=== PATIENT | male | born 1960 | race Two or more races ===

== ENCOUNTER 2020-02-07 05:53 | Day surgery (SDC) | payer OTHER | END 2020-02-07 09:44 | disposition home or self-care (01) | LOC: AMB-ENDOS 05:53 | PROVIDERS: ATTEND Surgery | DX: K62.89 Other specified diseases of anus and rectum (principal); Z20.828 Contact with and (suspected) exposure to other viral communicable diseases ==

== ENCOUNTER 2025-02-09 14:15 | Inpatient (IN) | payer OTHER ==
[~2025-02-09] VITALS: Ht 180.3 cm; Wt 93.0 kg
[2025-02-09] MEDS ORDERED: PLAVIX75 MG PO (15:15)
--- NOTE | 2025-02-09 15:17 | NUR ---
PACIENTE ALERTA Y ORINETADO X3 QUIEN REFIERE VENIR POR DOLOR EN EL AREA RECTAL EL CUAL COMENZO EN EL KULWINDER DE BOYD. REFIERE NO TENER PROBLEMAS PARA EVACUAR Y SANGRADO.
[2025-02-09] MEDS ORDERED: 0.9 % SODIUM CHLORIDE 1,000 ML IV STA (15:50)
[2025-02-09] MEDS ORDERED: FAMOTIDINE/PF 20 MG/2 ML VIAL IV STA (15:50)
[2025-02-09] MEDS ORDERED: ONDANSETRON HCL 2 MG/ML VIAL IV STA (15:50)
[2025-02-09] MEDS ORDERED: KETOROLAC TROMETHAMINE 30 MG VIAL IM STA (15:50)
[2025-02-09] MEDS ORDERED: FAMOTIDINE/PF 20 MG/2 ML VIAL ONE (15:54)
[2025-02-09] MEDS ORDERED: ONDANSETRON HCL 2 MG/ML VIAL ONE (15:54)
[2025-02-09] MEDS ORDERED: KETOROLAC TROMETHAMINE 30 MG VIAL ONE (15:54)
[2025-02-09 16:31] LABS: BASO % 0.3 % (0.1-1.2); EOS # 0.08 (0.04-0.54); EOS % 0.8 % (0.7-7.0); LYMPH # 1.58 (1.18-3.74); LYMPH % 15.2 % (19.3-53.1); MEAN PLATELET VOLUME 9.30 fl (9.4-12.4); MONO # 1.35 (0.24-0.82); NEUT # 7.31 (1.56-6.13); NEUT % 70.4 % (34.0-71.1); RED CELL DISTRIBUTION WIDTH 13.1 % (11.6-14.4)
[2025-02-09 16:58] LABS: ERYTHROCYTE SEDIMENTATION RATE 22 mm/hr (0-20); INR 1.1; MONO % 13.0 % (4.7-12.5)
[2025-02-09 17:03] LABS: ALT/SGPT 36.0 U/L (12-78); AST/SGOT 26.0 U/L (15-37); BILIRUBIN TOTAL 0.58 mg/dL (0.3-1.2); BILIRUBIN,CONJUGATED 0.17 mg/dL (0.0-0.2); BUN CREA RATIO 20.0 (7.0-25.0); CREATININE SERUM 1.04 mg/dL (0.70-1.30); GFR 71.9; GLUCOSE FASTING 106.0 mg/dL (65-100); OSMOLALITY SERUM 285.0 MOSM/KG (275-295)
[2025-02-09] MEDS ORDERED: BARIUM SULFATE 450 ML ORAL.SUSP PO ONE (17:20)
--- NOTE | 2025-02-09 17:28 | NUR ---
SE ORIENTA PTE SOBRE TRATAMIENTO MEDICO EL MISMO REFIERE ENTENDER. SE ADMINISTRAN MEDICAMENTOS RENE ORDEN MEDICA. SE COLECTAN MUESTRAS DE LABORATORIO BAJO MEDIDAS ASEPTICAS. SE ENTREGA A PTE CONTRASTE PO Y SE EDUCA. SE CANALIZA PTE EN BRAZO DERECHO BAJO MEDIDAS ASEPTICAS.
[2025-02-09] MEDS ORDERED: CEFTRIAXONE SODIUM 1,000 MG VIAL IV ONE (21:30)
[2025-02-09] MEDS ORDERED: CEFTRIAXONE SODIUM 1,000 MG VIAL ONE (21:39)
[2025-02-09] MEDS ORDERED: PIPERACILLIN/TAZOBACTAM SODIUM 3.375 GM in 0.9 % SODIUM CHLORIDE 100 ML IV SCH (21:45)
[2025-02-09] MEDS ORDERED: MORPHINE SULFATE 4 MG/ML VIAL IV SCH (21:46)
[2025-02-09] MEDS ORDERED: FAMOTIDINE/PF 20 MG in 0.9 % SODIUM CHLORIDE 100 ML IV SCH (21:46)
[2025-02-10] MEDS ORDERED: ACETAMINOPHEN 500 MG GEL..CAP PO SCH ×2 (02:00→20:00)
[2025-02-10 06:16] LABS: BASO % 0.4 % (0.1-1.2); EOS # 0.15 (0.04-0.54); EOS % 1.8 % (0.7-7.0); LYMPH # 1.80 (1.18-3.74); LYMPH % 21.5 % (19.3-53.1); MEAN PLATELET VOLUME 9.70 fl (9.4-12.4); MONO # 1.15 (0.24-0.82); NEUT # 5.23 (1.56-6.13); NEUT % 62.2 % (34.0-71.1); RED CELL DISTRIBUTION WIDTH 13.2 % (11.6-14.4)
[2025-02-10 06:33] LABS: INR 1.04
[2025-02-10 06:51] LABS: MONO % 13.7 % (4.7-12.5)
[2025-02-10 07:04] VITALS: BP 117/78; O2SAT 96
[2025-02-10 07:22] LABS: BUN CREA RATIO 19.0 (7.0-25.0); CREATININE SERUM 0.89 mg/dL (0.70-1.30); GFR 86.06; GLUCOSE FASTING 95.0 mg/dL (65-100); OSMOLALITY SERUM 279.0 MOSM/KG (275-295)
[2025-02-10] MEDS ORDERED: HEMOSTATIC MATRIX 1 KIT KIT TOP ONE (14:39)
[2025-02-10] MEDS ORDERED: SUGAMMADEX SODIUM 200 MG/2 ML VIAL IV ONE (14:42)
[2025-02-10] MEDS ORDERED: OxyCODONE HCL 5 MG TABLET (ROXICODONE) PO PRN (15:00)
[2025-02-10] MEDS ORDERED: ONDANSETRON HCL 2 MG/ML VIAL IV PRN (15:00)
[2025-02-10] MEDS ORDERED: 0.9 % SODIUM CHLORIDE 1,000 ML IV SCH (15:00)
[2025-02-10] MEDS ORDERED: MORPHINE SULFATE 4 MG/ML VIAL IV PRN (15:00)
[2025-02-10] MEDS ORDERED: DEXTROSE 50 % IN WATER 0.5 G/ML DISP.SYRIN IV PRN (15:00)
[2025-02-10] MEDS ORDERED: POVIDONE-IODINE 118 ML BOTT TOP ONE (15:15)
[2025-02-10] MEDS ORDERED: LIDOCAINE HCL 1%/EPINEPHRINE 20ML VIAL IJ ONE (15:15)
[2025-02-10] MEDS ORDERED: BUPIVACAINE HCL 30 ML VIAL IJ ONE (15:15)
[2025-02-10] MEDS ORDERED: DIBUCAINE 30 GM TUBE RECTAL ONE (15:15)
[2025-02-10] MEDS ORDERED: PIPERACILLIN/TAZOBACTAM SODIUM 3.375 GM VIAL IV ONE (16:51)
[2025-02-10] MEDS ORDERED: GABAPENTIN 300 MG CAPSULE PO SCH (17:00)
[2025-02-10] MEDS ORDERED: HYOSCYAMINE SULFATE 0.125 MG TAB.SUBL SL SCH (17:00)
[2025-02-10 17:26] LABS: BASO % 0.5 % (0.1-1.2); EOS # 0.17 (0.04-0.54); EOS % 2.1 % (0.7-7.0); LYMPH # 1.14 (1.18-3.74); LYMPH % 14.2 % (19.3-53.1); MEAN PLATELET VOLUME 9.70 fl (9.4-12.4); MONO # 0.98 (0.24-0.82); NEUT # 5.68 (1.56-6.13); NEUT % 70.8 % (34.0-71.1); RED CELL DISTRIBUTION WIDTH 13.2 % (11.6-14.4)
[2025-02-10 17:36] LABS: MONO % 12.2 % (4.7-12.5)
[2025-02-10 17:46] LABS: BUN CREA RATIO 18.0 (7.0-25.0); CREATININE SERUM 0.85 mg/dL (0.70-1.30); GFR 90.75; GLUCOSE FASTING 90.0 mg/dL (65-100); OSMOLALITY SERUM 278.0 MOSM/KG (275-295)
[2025-02-10 18:24] VITALS: BP 125/83; O2SAT 97
[2025-02-10] MEDS ORDERED: CELECOXIB 200 MG CAPSULE PO SCH (21:00)
[2025-02-10] MEDS ORDERED: FAMOTIDINE/PF 20 MG/2 ML VIAL IV PUSH SCH (21:00)
[2025-02-11 00:33] VITALS: BP 93/54; O2SAT 97
[2025-02-11 06:34] LABS: BASO % 0.5 % (0.1-1.2); EOS # 0.14 (0.04-0.54); EOS % 1.9 % (0.7-7.0); LYMPH # 1.35 (1.18-3.74); LYMPH % 18.0 % (19.3-53.1); MEAN PLATELET VOLUME 9.90 fl (9.4-12.4); MONO # 1.14 (0.24-0.82); NEUT # 4.79 (1.56-6.13); NEUT % 64.1 % (34.0-71.1); RED CELL DISTRIBUTION WIDTH 12.9 % (11.6-14.4)
[2025-02-11 06:41] LABS: MONO % 15.2 % (4.7-12.5)
[2025-02-11 07:26] LABS: BUN CREA RATIO 13.0 (7.0-25.0); CREATININE SERUM 0.96 mg/dL (0.70-1.30); GFR 78.86; GLUCOSE FASTING 79.0 mg/dL (65-100); OSMOLALITY SERUM 278.0 MOSM/KG (275-295)
[2025-02-11] MEDS ORDERED: SODIUM CL 0.9% 100 ML IV.SOLN IV ONE ×3 (07:36→13:19)
[2025-02-11 08:00] VITALS: BP 148/83; O2SAT 97
[2025-02-11] MEDS ORDERED: AMOX1TAB5 PO (08:20)
[2025-02-11] MEDS ORDERED: RECTICARE30 GM TOP (08:20)
[2025-02-11] MEDS ORDERED: TRAM1TAB98 PO (08:20)
[2025-02-11 09:25] VITALS: BP 151/95; O2SAT 99
[2025-02-11 16:11] VITALS: BP 135/85; O2SAT 98
[2025-02-11] MEDS ORDERED: AMINO ACIDS/PROTEIN HYDROLYS 30 ML BLIST.PACK PO SCH (17:00)
[2025-02-11] MEDS ORDERED: ENOXAPARIN SODIUM 40 MG/0.4 ML SYRINGE SUBCUTANEO SCH (17:00)
[2025-02-12] MEDS ORDERED: ENOXAPARIN SODIUM 40 MG/0.4 ML SYRINGE SUBCUTANEO SCH (09:00)
== END 2025-02-11 16:24 | disposition home or self-care (01) | DRG 395 ==
LOC: ER 14:15 → O/R 22:10 → SURH 02-10 15:54
PROVIDERS: General Practice; Surgery; ADMIT Internal Medicine; ATTEND Internal Medicine
PROC: BW21YZZ Computerized Tomography (CT Scan) of Abdomen and Pelvis using Other Contrast (ICD-10-PCS; principal; 2025-02-09)
DX: K61.0 Anal abscess (principal); K62.89 Other specified diseases of anus and rectum; K59.09 Other constipation